=== PATIENT | male | born 1990 | race African-American/Black ===

== ENCOUNTER 2016-04-28 21:09 | Emergency (ER) | payer SELFPAY ==
[~2016-04-28] VITALS: Ht 190.5 cm; Wt 70.3 kg
[2016-04-28 21:20] VITALS: BP 103/57
--- NOTE | 2016-04-28 21:54 | PHYS DOC ---
Past Medical History Past Medical History: No Pertinent History Past Surgical History: No Surgical History Alcohol Use: Occasionally Drug Use: None Adult General Chief Complaint Chief Complaint: RIB PAIN [facility] HPI Patient is a 26 year old male who presents emergency room today with complaint of atraumatic right anterior lateral chest wall pain that is been intermittent in nature throughout the course the day. Patient states that the pain became really strong" earlier today that prompted him to throw up once. He states that after that he felt much better. Patient denies shortness of breath or cough. Patient denies fevers or chills. Patient denies any persistent nausea or vomiting. Denies diarrhea or constipation. Patient denies any history of heart or lung disease. He denies any history gastrointestinal diseases. Review of Systems Review of Systems Constitutional: Denies fever or chills [] Eyes: Denies change in visual acuity, redness, or eye pain [] HENT: Denies nasal congestion or sore throat [] Respiratory: Denies cough or shortness of breath [] Cardiovascular: No additional information not addressed in HPI [] GI: Denies abdominal pain, nausea, vomiting, bloody stools or diarrhea [] : Denies dysuria or hematuria [] Musculoskeletal: Denies back pain or joint pain [] Integument: Denies rash or skin lesions [] Neurologic: Denies headache, focal weakness or sensory changes [] Endocrine: Denies polyuria or polydipsia [] Allergies Allergies Allergies Coded Allergies Type Severity Reaction Last Updated Verified No Known Drug Allergies 04/28/16 No Physical Exam Physical Exam Constitutional: Well developed, well nourished, no acute distress, non-toxic appearance. Patient states that he is currently pain-free. HENT: Normocephalic, atraumatic, bilateral external ears normal, oropharynx moist, no oral exudates, nose normal. [] Eyes: PERRLA, EOMI, conjunctiva normal, no discharge. [] Neck: Normal range of motion, no tenderness, supple, no stridor. [] Cardiovascular:Heart rate regular rhythm, no murmur [] Lungs & Thorax: Bilateral breath sounds clear to auscultation. Right anterior lateral chest wall and costal border are currently nontender to palpation. Patient states this is where he typically feels the pain. There is no palpable defect to the chest wall, instability or crepitus. Abdomen: Soft and nondistended. There are normoactive bowel sounds in all 4 quadrants. There is no palpable defect to the abdominal wall or pulsatile mass. There is no focal pain, guarding or rebound. Skin: Warm, dry, no erythema, no rash. [] Back: No tenderness, no CVA tenderness. [] Extremities: No tenderness, no cyanosis, no clubbing, ROM intact, no edema. [] Neurologic: Alert and oriented X 3, normal motor function, normal sensory function, no focal deficits noted. [] Psychologic: Affect normal, judgement normal, mood normal. [] Current Patient Data Vital Signs Vital Signs Date Time Temp Pulse Resp B/P Pulse Ox O2 Delivery O2 Flow Rate FiO2 04/28/16 21:20 98.2 84 16 99 Room Air 98.2 EKG EKG [] Radiology/Procedures Radiology/Procedures PA and lateral chest x-ray are performed with adequate technique. There is no evidence of acute intrathoracic process. Course & Med Decision Making Course & Med Decision Making Pertinent Labs and Imaging studies reviewed. (See chart for details) [] Dragon Disclaimer Dragon Disclaimer This electronic medical record was generated, in whole or in part, using a voice recognition dictation system. Departure Departure Impression: Primary Impression: Acute chest wall pain Disposition: HOME, SELF-CARE Condition: GOOD Referrals: NO PCP (PCP) Patient Instructions: Chest Wall Pain, [id number] Additional Instructions: 1. The x-rays of your chest today are normal. 2. Take the medication as prescribed. 3. Review the discharge instructions provided for guidance on self care and reasons to return to the emergency department. 4. A pamphlet is provided to you for assistance in finding a primary care doctor to address your medical concerns and follow-up. Please review the list and: Office Saturday to schedule follow-up appointment. Scripts Naproxen Sodium (Anaprox Ds)550 Mg [id number] Mg PO every 12 hours #14 Prov:NARA COLBY 04/28/16 NARA COLBY Apr 28, 2016 21:54
[2016-04-28] MEDS ORDERED: NAPR550T PO (22:30)
--- NOTE | 2016-04-29 08:06 | RAD ---
Exam: PA and lateral chest radiograph History: Right anterolateral chest wall pain. Comparison: None. Findings: Cardiomediastinal silhouette is within normal limits for size. Bilateral lung saucedo are free of focal infiltrate. No pleural effusion is seen. Impression: No acute cardiopulmonary process.
== END 2016-04-28 22:34 | disposition home or self-care (01) ==
LOC: ER 21:09
DX: R07.89 Other chest pain (principal)
CPT/HCPCS: 71020; 99284